=== PATIENT | female | born 1930 | race Caucasian/White ===

== ENCOUNTER 2017-08-17 14:29 | Emergency (ER) | payer MEDICARE ==
[~2017-08-17] VITALS: Ht 154.9 cm; Wt 64.9 kg
[~2017-08-17 14:29] MED LIST: ASPIRIN EC81 MG PO; CARVEDILOL3.125 MG PO; COZAAR100 MG PO; TERAZOSIN HCL1 MG PO; TRIAMTERENE-HC1 EAC2 PO
[2017-08-17] MEDS ORDERED: ELIQUIS5 MG PO (14:41)
[2017-08-17] MEDS ORDERED: NORCO 5-325 TA1 EACH PO (18:02)
[2017-08-17] MEDS ORDERED: BENTYL10 MG PO (18:02)
== END 2017-08-17 18:36 | disposition home or self-care (01) ==
LOC: ED 14:29
DX: K57.92 Diverticulitis of intestine, part unspecified, without perforation or abscess without bleeding (principal); I10 Essential (primary) hypertension; E03.9 Hypothyroidism, unspecified; I48.91 Unspecified atrial fibrillation; Z88.1 Allergy status to other antibiotic agents; Z88.5 Allergy status to narcotic agent; Z88.2 Allergy status to sulfonamides; Z79.899 Other long term (current) drug therapy
CPT/HCPCS: 74177; 80053; 81001; 82150; 83690; 85025; 87088; 96374; 96375; 99284; J1170; J2405; Q9967

== ENCOUNTER 2017-10-26 19:07 | Emergency (ER) | payer MEDICARE ==
[~2017-10-26] VITALS: Ht 154.9 cm; Wt 64.9 kg
[~2017-10-26 19:07] MED LIST changes: +BENTYL10 MG PO; +ELIQUIS5 MG PO; +NORCO 5-325 TA1 EACH PO
[2017-10-26] MEDS ORDERED: RESTASIS MULTI5.5 ML OP (19:31)
[2017-10-26] MEDS ORDERED: DOXYCYCLINE HYC50 MG PO (19:31)
== END 2017-10-26 21:00 | disposition home or self-care (01) ==
LOC: ED 19:07
DX: S70.01XA Contusion of right hip, initial encounter (principal); I10 Essential (primary) hypertension; I48.91 Unspecified atrial fibrillation; E03.9 Hypothyroidism, unspecified; Z88.1 Allergy status to other antibiotic agents; Z88.5 Allergy status to narcotic agent; Z88.2 Allergy status to sulfonamides; Z79.899 Other long term (current) drug therapy; W01.0XXA Fall on same level from slipping, tripping and stumbling without subsequent striking against object, initial encounter
CPT/HCPCS: 73502; 99283

== ENCOUNTER 2017-11-09 19:09 | Emergency (ER) | payer MEDICARE ==
[~2017-11-09] VITALS: Ht 154.9 cm; Wt 64.9 kg
[~2017-11-09 19:09] MED LIST changes: +DOXYCYCLINE HYC50 MG PO; +RESTASIS MULTI5.5 ML OP
[2018-03-31] MEDS ORDERED: COREG3.125 MG PO (09:24)
== END 2017-11-09 21:39 | disposition home or self-care (01) ==
LOC: ED 19:09
DX: T17.328A Food in larynx causing other injury, initial encounter (principal); J47.9 Bronchiectasis, uncomplicated; I10 Essential (primary) hypertension; E03.9 Hypothyroidism, unspecified; I48.91 Unspecified atrial fibrillation; Z88.1 Allergy status to other antibiotic agents; Z88.5 Allergy status to narcotic agent; Z88.2 Allergy status to sulfonamides
CPT/HCPCS: 71046; 99283

== ENCOUNTER 2018-01-22 03:54 | Emergency (ER) | payer MEDICARE ==
[~2018-01-22] VITALS: Ht 154.9 cm; Wt 64.9 kg
[2018-01-22] MEDS ORDERED: LEVOTHYROXINE88 MCG PO (04:05)
[2018-01-22] MEDS ORDERED: ELIQUIS2.5 MG PO (04:06)
[2018-01-22] MEDS ORDERED: DOXYCYCLINE HYC50 MG PO (04:08)
[2018-01-22] MEDS ORDERED: NITROGLYCERIN0.4 MG SL (06:39)
--- NOTE | 2018-01-22 13:22 | EKG ---
[facility] [address] [facility] [place] [address] Signed Atrial fibrillation Left axis deviation Inferior infarct , age undetermined Abnormal ECG When compared with ECG of 02-DEC-2016 21:37, Previous ECG has undetermined rhythm, needs review QRS duration has decreased Inferior infarct is now present T wave inversion now evident in Inferior leads Confirmed by FRANKLYN WEAVER MD ([id number]) on 01/22/2018 1:22:15 PM Electronically Signed By: FRANKLYN WEAVER MD 01/22/18 1322 PATIENT NAME: ANTOINETTE WILLIS Electrocardiogram DATE OF : [birth year] PHYSICIAN: FRANKLYN WEAVRE MD REPORT #: [id number] REPORT IS CONFIDENTIAL AND NOT TO BE RELEASED WITHOUT AUTHORIZATION
[2018-03-31] MEDS ORDERED: COREG3.125 MG PO (09:24)
== END 2018-01-22 08:45 | disposition home or self-care (01) ==
LOC: ED 03:54
DX: I48.91 Unspecified atrial fibrillation (principal); I10 Essential (primary) hypertension; E03.9 Hypothyroidism, unspecified; Z79.899 Other long term (current) drug therapy
CPT/HCPCS: 36415; 71045; 80053; 83880; 84484; 85025; 85610; 93005; 93010; 99284

== ENCOUNTER 2018-03-29 14:54 | Emergency (ER) | payer MEDICARE ==
[~2018-03-29] VITALS: Ht 154.9 cm; Wt 64.9 kg
[~2018-03-29 14:54] MED LIST changes: +ELIQUIS2.5 MG PO; +LEVOTHYROXINE88 MCG PO; +NITROGLYCERIN0.4 MG SL
--- NOTE | 2018-03-30 06:56 | EKG ---
[facility] [address] [place] [address] Signed Sinus bradycardia with 1st degree AV block with premature supraventricular complexes Left axis deviation Anteroseptal infarct , age undetermined Abnormal ECG When compared with ECG of 22-JAN-2018 03:58, Sinus rhythm has replaced Atrial fibrillation Anteroseptal infarct is now present Criteria for Inferior infarct are no longer present Nonspecific T wave abnormality now evident in Lateral leads QT has shortened Confirmed by LAUREANO CASTANEDA MD ([id number]) on 03/30/2018 6:56:35 AM Electronically Signed By: LAUREANO CASTANEDA MD 03/30/18 0656 PATIENT NAME: ANTOINETTE WILLIS Electrocardiogram DATE OF : [birth year] PHYSICIAN: LAUREANO CASTANEDA MD REPORT #: [id number] REPORT IS CONFIDENTIAL AND NOT TO BE RELEASED WITHOUT AUTHORIZATION
== END 2018-03-29 16:52 | disposition home or self-care (01) ==
LOC: ED 14:54
DX: I48.91 Unspecified atrial fibrillation (principal); I10 Essential (primary) hypertension; E03.9 Hypothyroidism, unspecified; Z88.1 Allergy status to other antibiotic agents; Z88.5 Allergy status to narcotic agent; Z88.2 Allergy status to sulfonamides; Z79.899 Other long term (current) drug therapy
CPT/HCPCS: 80053; 84484; 85025; 93005; 93010; 93225; 93226; 93227; 99284

== ENCOUNTER 2018-03-30 12:39 | Observation (INO) | payer MEDICARE ==
[~2018-03-30] VITALS: Ht 154.9 cm; Wt 65.1 kg
--- NOTE | 2018-03-30 18:14 | EKG ---
[facility] [address] [facility] [place] [address] Signed Atrial fibrillation with slow ventricular response with premature ventricular or aberrantly conducted complexes Left axis deviation Nonspecific ST abnormality Abnormal ECG When compared with ECG of 29-MAR-2018 15:03, Atrial fibrillation has replaced Sinus rhythm Criteria for Anteroseptal infarct are no longer present QT has lengthened Confirmed by LAUREANO CASTANEDA MD ([id number]) on 03/30/2018 6:13:59 PM Electronically Signed By: LAUREANO CASTANEDA MD 03/30/18 1814 PATIENT NAME: ANTOINETTE WILLIS Electrocardiogram DATE OF : [birth year] PHYSICIAN: LAUREANO CASTANEDA MD REPORT #: [id number] REPORT IS CONFIDENTIAL AND NOT TO BE RELEASED WITHOUT AUTHORIZATION
--- NOTE | 2018-03-30 19:11 | NUR ---
RECIEVED PATIENT FROM ED. ASSISTED BEAR BLEVINS AND IVORY BRADFORD. PATIENT WAS ABLE TO SELF TRANSFER INTO BED. CALL LIGHT IN REACH. DIETARY BROUGHT A SANDWICH FOR PATIENT.
--- NOTE | 2018-03-30 19:48 | NUR ---
PT ARRIVED TO FLOOR FROM ED AT 1900 VIA STRETCHER, NO C/O SOB OR CP. WEARING A HOLTER MONITOR, TO BE DC'D AT 1630 03/31. HX OF BRADYCHARDIA AND AFIB. CURRENT HEAR RATE BY VS MACHINE MONITOR WAS 46. 43 AUSCULTATION. NO C/O DIZZINES OR LIGHTHEADNESS. WALKED UP TO BRP, VOIDED, CLEAR YELLOW URINE. USES CANE AND 1 SBA
--- NOTE | 2018-03-30 21:51 | NUR ---
Pt declined Hytrin 2mg po, BP 104/56, p 40, denies c.o lightheadness, no CP or sob.
--- NOTE | 2018-03-31 04:37 | NUR ---
Resting, no c/o distress. Call ligth at bedside
--- NOTE | 2018-03-31 05:49 | NUR ---
Currently in bed awake, watching TV, Denies c/o chest pain, lightheadness or sob. Tele#10 and [address] monitor in [address], Pulse is bradychardia int he low 40's. asymptomatic. Gets up to brp with one person assist and using her cane. Tolerates well.
--- NOTE | 2018-03-31 06:37 | NUR ---
UP TO BRP, VOIDED, NO BM. BACK TO BED, TOLERATD WELL. USES 1SBA AND CANE
--- NOTE | 2018-03-31 07:35 | NUR ---
STANDBY ASSIST FROM BED TO BR. BEAR KOLB IN ROOM FOR MEDS AND VITALS. PATIENT EATING BREAKFAST IN CHAIR, BED MADE AND ROOM TIDIED CALL LIGHT IN REACH. NO OTHER NEEDS
--- NOTE | 2018-03-31 07:45 | NUR ---
PT AMBULTAED TO BATHROOM WITH CANE AND MINUAL ASSISTANCE. HEART RATE INCREASED TO THE HIGH 70'S WITH AMBULATION. BUT WHEN BACK INTO THE CHAIR HEART RATE DECREASED BACK TO THE 40 TO 50'S. PT HAS HAD TWO BM SO FAR THIS MORNING. CURRENTLY SITTING UP IN THE CHAIR EATING BKF. CALL LIGHT WITHIN REACH. PT IS HARD OF HEARING.
--- NOTE | 2018-03-31 09:03 | NUR ---
PT AMBULATED WITH CANE TO BATHROOM BRUSHED TEETH AND BACK TO THE CHAIR. PT DOES WELL WITH AMBULATION.
[2018-03-31] MEDS ORDERED: COREG3.125 MG PO ×2 (09:24)
--- NOTE | 2018-03-31 09:40 | NUR ---
PATIENT UP IN CHAIR, THIS DIVISION HEAD AND IVORY AGUILAR IN FRO VITALS AND I/OS. IV WAS REMOVED BY IVORY AGUILAR. PATIENT IS VERY PLEASANT. CALL LIGHT IN REACH, NO OTHER NEEDS
--- NOTE | 2018-03-31 09:57 | NUR ---
PT TO BE DISCHARGE TO HOME TODAY.
--- NOTE | 2018-03-31 11:14 | NUR ---
DISCHARGE, INSTRUCTIONS GIVEN TO PATIENT AND DAUGHTER ALL QUESTIONS ANSWERED AT THIS TIME. IV AND TELE MONITOR REMOVED, HOLTER MONTOR INPLACE AND FAMILY AND PATIENT UNDERSTAND THAT IT NEEDS TO BE REMOVED AT 16:30 TODAY. DAUGHTER SAID SHE WILL BRING IT IN AT THAT TIME.
--- NOTE | 2018-03-31 11:36 | NUR ---
PT TRansported via w/c to [employer] car. assisted into car and seatbelt inplace.
--- NOTE | 2018-04-17 09:06 | DIAG ---
[facility] [place] [facility] [address] [facility] [place], [place] [address] Signed DATE OF STUDY: 03/30/2018 HOLTER MONITOR INDICATION: This is an 87-year-old female referred for Holter evaluation secondary to palpitations. SUMMARY REPORT: The patient was monitored for 48 hours and 26 minutes. There was almost 4 hours of artifact and total beats recorded 134,461. The patient was noted to be predominantly in atrial fibrillation, however, overall controlled ventricular rate. Average heart rate was 49 beats per minute, maximum heart rate 90 beats per minute and minimum heart rate 36 beats per minute, noted to be at 5:43 a.m. presumably sleeping time. Arrhythmia was noted as rare premature ventricular contractions. Multiple insignificant pauses, longest was in the range of 2.5 to 3 seconds. Report is noted that there is a long pause of 7.9 seconds, but that is probably likely an artifact. CONCLUSION: 1. A 48-hour Holter monitor with 4 hours of artifact, total beats recorded 134,461 beats. 2. The patient was predominantly in atrial fibrillation with 100% burden. 3. Average heart rate was 49 beats per minute, maximum heart rate 90 beats per minute, and minimum heart rate 36 beats per minute, noted to be presumably sleeping time. Indicating slow ventricular rate. 4. Arrhythmia was noted as rare premature ventricular contraction and insignificant pauses. [facility] MD GIULIANO Faulkner/FELY /[id number] cc: DO Dr. Preston Walker Copies: Rafael Baugh DO PATIENT NAME: ANTOINETTE WILLIS DIAGNOSTIC STUDY DATE OF : [birth year] REPORT #: [id number] PHYSICIAN: JEROINMO FAULKNER MD PCP: PATRICIO DURON MD REPORT IS CONFIDENTIAL AND NOT TO BE RELEASED WITHOUT AUTHORIZATION [address] [address] Signed ~ PATIENT NAME: ANTOINETTE WILLIS DIAGNOSTIC STUDY DATE OF : [birth year] REPORT #: [id number] PHYSICIAN: JERONIMO FAULKNER MD PCP: PATRICIO DURON MD REPORT IS CONFIDENTIAL AND NOT TO BE RELEASED WITHOUT AUTHORIZATION
== END 2018-03-31 11:30 | disposition home or self-care (01) ==
LOC: ED 12:39 → MS 12:41
PROVIDERS: ADMIT Internal Medicine
DX: R00.1 Bradycardia, unspecified (principal); I48.2 Chronic atrial fibrillation; I10 Essential (primary) hypertension; E03.9 Hypothyroidism, unspecified; J47.9 Bronchiectasis, uncomplicated; E83.42 Hypomagnesemia; Z79.01 Long term (current) use of anticoagulants; Z79.899 Other long term (current) drug therapy; Z88.1 Allergy status to other antibiotic agents; Z88.5 Allergy status to narcotic agent; Z88.2 Allergy status to sulfonamides
CPT/HCPCS: 36415; 80048; 80053; 81001; 83735; 83880; 84484; 85025; 93005; 93010; 96365; 96374; 96375; 96376; 99285; G0378; J3475